=== PATIENT | female | born 1965 | race Caucasian/White ===

== ENCOUNTER 2017-03-29 23:43 | Emergency (ER) | payer MEDICAID ==
[2017-03-30 00:08] VITALS: BP 164/96
[2017-03-30] MEDS ORDERED: IBUPROFEN 600 MG TABLET PO ONE (01:54)
--- NOTE | 2017-03-30 01:59 | ER Document Report ---
ED Headache - General Chief Complaint: Headache <24 hrs old Stated Complaint: HEADACHE Time Seen by Provider: 03/30/17 01:42 Notes: 51-year-old female history of diabetes and a single seizure presents with left- sided headache. She describes it as a pressure behind her left eye now radiating some pressure to her left nares and maxillary region. She has clear discharge and feels some congestion. This is improved with Sudafed mildly as well as saline nasal spray. It is worse with position such as rotating her head to the right and feels better when she holds still. She has had no fever. Has been a gradual onset over 2 days but has had slightly blurry vision and some horizontal diplopia today. Denies any vision loss. No new neck pain but has some chronic neck pain and a pinched nerve so she was not too concerned about the left-sided tingling that she had tonight. Denies any focal weakness, sensory loss, speech or swallowing difficulty, facial weakness. No confusion. Denies trauma. No significant history of migraines. She does report increased stress as she has come down from [place] to see her father who is undergoing cancer complications. She is on Depakote for a prior single seizure. TRAVEL OUTSIDE OF THE [place] IN LAST 30 DAYS: No - Related Data Allergies/Adverse Reactions: No Known Allergies Allergy (Verified 03/30/17 00:02) Past Medical History - Social History Smoking Status: Current Every Day Smoker Family History: Reviewed & Not Pertinent, Other - No aneurysmal issues Renal/ Medical History: Denies: Hx Peritoneal Dialysis Review of Systems - Review of Systems -: Yes All other systems reviewed and negative Physical Exam - Vital signs Vitals: Temp Pulse Resp BP Pulse Ox 98.1 F 88 20 164/96 H 97 03/30/17 00:02 03/30/17 00:02 03/30/17 00:02 03/30/17 00:02 03/30/17 00:02 - Notes Notes: GENERAL: VS as per nursing doc. Well-appearing, well-nourished and in no acute distress. HEAD: Atraumatic, normocephalic. EYES: Pupils equal round and reactive to light, extraocular movements intact, no nystagmus noted. Sclera anicteric, no conjunctival injection or discharge. ENT: Nares patent, oropharynx clear without exudates. Moist mucous membranes. Left percussive maxillary tenderness. NECK: Normal range of motion, supple, no carotid bruits. LUNGS: Breath sounds slightly coarse but clear to auscultation bilaterally and equal. No wheezes rales or rhonchi. HEART: Normal S1S2. Regular rate and rhythm without murmurs. Equal peripheral pulses. ABDOMEN: Soft, non-tender. EXTREMITIES: Normal range of motion. No calf tenderness. No edema. NEUROLOGICAL: GCS 15, Cranial nerves II-XII intact. Normal visual pritchard. Normal speech without aphasia. No pronator drift. 5/5 RUE strength, 5/5 RLE strength, 5/5 LUE strength, 5/5 LLE strength. No cerebellar abnormalities including normal finger-nose testing. Negative Babinski, PSYCH: Normal mood, normal affect. SKIN: Warm, Dry, no cyanosis, Cap refill < 2 sec. Course - Re-evaluation Re-evalutation: 03/30/17 04:57 Headache seems to be improving but not completely gone. We discussed findings and follow-up needs. No clear sinusitis on the CT but symptomatically she seems to have symptoms more with that. We will treat her acute sinusitis with the degree of symptoms she has. She will use Afrin as well to help with her symptoms. She will try Fioricet for headaches and return if she has worsening of the symptomss. No neurologic abnormalities are noted at the time of recheck. - Vital Signs Vital signs: Temp Pulse Resp BP Pulse Ox 98.1 F 88 20 164/96 H 97 03/30/17 00:02 03/30/17 00:02 03/30/17 00:02 03/30/17 00:02 03/30/17 00:02 - Laboratory Result Diagrams: 03/30/17 02:35 03/30/17 02:35 Laboratory results interpreted by me: 03/30/17 03/30/17 02:35 02:35 WBC 10.8 H Sodium 134.8 L BUN 6 L Creatinine 0.50 L Glucose 120 H - Diagnostic Test Radiology reviewed: Reports reviewed - Nonacute head CT. Discharge - Discharge Clinical Impression: Headache, Acute sinusitis Condition: Good Additional Instructions: Consider using Afrin nasal spray for up to 3 days to see if this helps with the symptoms. May use the Fioricet as well for discomfort. Please return for worsening or concern. Follow-up with your primary care when you are back in town. Prescriptions: Butalb/Acetaminophen/Caffeine [Fioricet (50-325-40 mg) Tablet] 1 - 2 tab PO Q4HP PRN #20 tab PRN Reason: Azithromycin [Zithromax 250 mg Tablet] 250 mg PO ASDIR PRN #6 tablet PRN Reason:
[2017-03-30 02:45] LABS: ABSOLUTE BASOPHILS # (AUTO) 0.1 10^3/uL (0.0-0.2); ABSOLUTE EOSINOPHILS # (AUTO) 0.1 10^3/uL (0.0-0.6); ABSOLUTE LYMPHOCYTES (AUTO) 4.2 10^3/uL (0.5-4.7); ABSOLUTE MONOCYTES (AUTO) 0.7 10^3/uL (0.1-1.4); ABSOLUTE NEUT (AUTO) 5.7 10^3/uL (1.7-8.2); BASOPHILS % (AUTO) 0.5 % (0-2); EOSINOPHILS % (AUTO) 0.6 % (0-6); HEMATOCRIT 37.5 % (36.0-47.0); HEMOGLOBIN 13.1 g/dL (12.0-15.5); HGB HCT DIFFERENCE 1.8; LYMPHOCYTES % (AUTO) 39.2 % (13-45); MEAN CORPUSCULAR HEMOGLOBIN 31.2 pg (27.0-33.4); MEAN CORPUSCULAR HGB CONC 35.1 g/dL (32.0-36.0); MEAN CORPUSCULAR VOLUME 89 fl (80-97); MONOCYTES % (AUTO) 6.6 % (3-13); RED BLOOD COUNT 4.22 10^6/uL (3.72-5.28); RED CELL DISTRIBUTION WIDTH 13.2 % (11.5-14.0); SEGMENTED NEUTROPHILS % (AUTO) 53.1 % (42-78); WHITE BLOOD COUNT 10.8 10^3/uL (4.0-10.5)
[2017-03-30 03:08] LABS: ANION GAP 13 (5-19); BLOOD UREA NITROGEN 6 mg/dL (7-20); CALCIUM 9.6 mg/dL (8.4-10.2); CARBON DIOXIDE 23 mmol/L (22-30); CHLORIDE 99 mmol/L (98-107); GLUCOSE 120 mg/dL (75-110); POTASSIUM 4.2 mmol/L (3.6-5.0); SODIUM 134.8 mmol/L (137-145)
[2017-03-30 03:14] LABS: VALPROIC ACID 50.9 ug/mL (50.0-120.0)
--- NOTE | 2017-03-30 03:39 | RADIOLOGY REPORT (SQ) ---
EXAM DESCRIPTION: CT HEAD WITHOUT COMPLETED DATE/TIME: 03/30/2017 3:13 am REASON FOR STUDY: Lt URBINA COMPARISON: None. TECHNIQUE: Axial images acquired through the brain without intravenous contrast. Images reviewed wi th bone, brain and subdural windows. Images stored on PACS. All CT scanners at this facility use dose modulation, iterative reconstruction, and/or weight based d osing when appropriate to reduce radiation dose to as low as reasonably achievable (ALARA). [facility]: Dose Right [facility]: CareDose [facility]: Dose Right [facility]: Teradose 4D [facility]: [employer] RADIATION DOSE: Up-to-date CT equipment and radiation dose reduction techniques were employed. CTDIv ol: 64.6 mGy. DLP: 1163 mGy-cm. mGy. LIMITATIONS: None. FINDINGS: VENTRICLES: Normal size and contour. CEREBRUM: No masses. No hemorrhage. No midline shift. No evidence for acute infarction. Normal gra y/white matter differentiation. No areas of low density in the white matter. CEREBELLUM: No masses. No hemorrhage. No alteration of density. No evidence for acute infarction. EXTRAAXIAL SPACES: No fluid collections. No masses. ORBITS AND GLOBE: No intra- or extraconal masses. Normal contour of globe without masses. CALVARIUM: No fracture. PARANASAL SINUSES: No fluid or mucosal thickening. SOFT TISSUES: No mass or hematoma. OTHER: No other significant finding. IMPRESSION: NORMAL BRAIN CT WITHOUT CONTRAST. COMMENT: Quality ID # [id number]: Final reports with documentation of one or more dose reduction techniques (e.g., Automated exposure control, adjustment of the mA and/or kV according to patient size, use of iterative reconstruction technique) TECHNICAL DOCUMENTATION: JOB ID: [id number]- All Rights Reserved
== END 2017-03-30 06:04 | disposition home or self-care (01) ==
LOC: ER 23:43
DX: J01.90 Acute sinusitis, unspecified (principal); M54.2 Cervicalgia; R51 Headache; E11.9 Type 2 diabetes mellitus without complications; G89.29 Other chronic pain; Z79.899 Other long term (current) drug therapy; F17.200 Nicotine dependence, unspecified, uncomplicated
CPT/HCPCS: 36415; 70450; 80048; 80164; 85025; 99284